=== PATIENT | female | born 1960 | race Caucasian/White ===

== ENCOUNTER 2016-08-24 04:13 | Emergency (ER) | payer BC ==
--- NOTE | 2016-08-24 07:56 | ED NURSING NOTES ---
Clinical Report - Nurses Formerly [facility] [address] [place] [address] 08/24/2016 4:12 Patient: NEY CUEVAS TRIAGE Triage time 04:19. Chief Complaint: ABDOMINAL PAIN, NAUSEA, VOMITING and DIARRHEA. --04:27 Aguila Rodriguez R.N. 04:19 08/24/16. BP: 145/97. HR: 112. RR: 20. O2 saturation: 96%. Temp: 97.6 F. --04: Aguila Rodriguez R.N. Acuity: LEVEL 3. --04: Aguila Rodriguez R.N. Weight: 108.8 kg stated. Height/Length: 66 inches Per Patient. BMI: 38.7. --04: Aguila Rodriguez R.N. Medications Cyclobenzaprine HCl Oral (Tablet 10 mg) 1 tablet, 3x a day as needed. Flonase Nasal 2 sprays, 2x a day as needed. Naproxen Oral 220mg, daily as needed. --04: Aguila Rodriguez R.N. Medication/allergy information source: the patient. --04: Aguila Rodriguez R.N. Allergies Hydrocodone. Side-Effect Oxycodone. Side-Effect (gets loopy does not like) --04: Aguila Rodriguez R.N. History Arrived by private vehicle. Historian: patient. Accompanied by family. ( Nausea, vomiting and diarrhea since 1930 hrs tonight with generalized abdominal pain. No fever.). This started last night. She has had nausea. It has been similar to previous symptoms, vomiting. The vomiting has been bilious, loose stools and abdominal pain. The pain is described as generalized and radiating to the back and associated with nausea, vomiting and diarrhea. Treatment [employer]ENTICE: (Zofran). SURGERY HX: Had hysterectomy. --04:27 Aguila Rodriguez R.N. PROBLEMS: Gastroenteritis. Cancer. Osteoarthritis of multiple joints. Depression. Back Pain. --04:24 Aguila Rodriguez R.N. Interventions ID band on patient. To room. --04:28 Aguila Rodriguez R.N. PHYSICAL ASSESSMENT To room via wheelchair. GENERAL / NEURO / PSYCH: Alert. Appears in no acute distress. Appears in pain and anxious. RESPIRATORY: Respirations not labored. Breath sounds within normal limits. GI / : The patient has had nausea and diarrhea. Obesity. Abdomen soft. Abdominal tenderness diffusely. Bowel sounds within normal limits. SKIN: Skin is warm and dry. --04:30 Aguila Rodriguez R.N. NURSING PROGRESS NOTES Head of bed elevated. Reassurance given. Patient ready for evaluation- ED physician notified. --04:32 Aguila Rodriguez R.N. 04:30 08/24/2016 Site #1 started via IV in the left antecubital space with an 20g angiocath; one attempt. Saline lock flushed with 10 mL saline. --04:35 Aguila Rodriguez R.N. 04:31 08/24/2016 Started IV Fluids IV NS (Saline); bolus of 1000 mL over 1 hour(s) via site #1 via IV pump. Allergies verified and confirmed 5 rights. IV patency established. IV site checked: no pain, redness, or swelling. IV flushed thoroughly pre- and post-medication administration. --04:36 Aguila Rodriguez R.N. 04:40 08/24/2016 Zofran (Ondansetron HCl) IVP 4 mg given over 2 minute(s) via site #1. Allergies verified and confirmed 5 rights. IV patency established. IV site checked: no pain, redness, or swelling. IV flushed thoroughly pre- and post-medication administration. IVP given by RN. --04:40 Aguila Rodriguez R.N. 04:46 08/24/2016 Ativan (LORazepam) IVP 0.5 mg given over 3 minute(s) via site #1. Allergies verified, confirmed 5 rights and sedative warning given to the patient and patient's family. IV patency established. IV site checked: no pain, redness, or swelling. IV flushed thoroughly pre- and post-medication administration. IVP given by RN. --04:46 Aguila Rodriguez R.N. 05:17 08/24/2016 IV Fluids IV NS Discontinued: bag #1 infused. Total amount infused: 1000 mL. IV patency established. IV site checked: no pain, redness, or swelling. IV flushed thoroughly. --05:17 Aguila Rodriguez R.N. 05:24 08/24/2016 Started bag #1 1000 mL IV Fluids IV NS (Saline); at 250 mL/hr over 4 hour(s) via site #1 via IV pump. Allergies verified and confirmed 5 rights. IV patency established. IV site checked: no pain, redness, or swelling. IV flushed thoroughly pre- and post-medication administration. --05:24 Aguila Rodriguez R.N. 05:25 08/24/16. BP: 152/81. HR: 102. RR: 16. O2 saturation: 99%. --05:27 Aguila Rodriguez R.N. Reassessment after fluids administered (bolus). She is calm and resting quietly. Overall patient status is the same- she states feels the same. GI / : Abdomen soft and nontender. Bowel sounds within normal limits. SKIN: Skin is warm and dry. Skin color within normal limits. --05:27 Aguila Rodriguez R.N. Patient ID band checked for patient name and birthdate: patient confirmed. Instructions provided to collect clean catch urine and patient verbalized understanding urine collected with return of yellow-colored clear urine; sample sent to lab for urinalysis. Specimen labeled in the presence of the patient. --06:08 Aguila Rodriguez R.N. 06:49 08/24/16. BP: 138/72. HR: 89. RR: 16. O2 saturation: 97%. --06:50 Aguila Rodriguez R.N. Reassessment after fluids administered. GI / : The patient reports nausea that is mild in severity. Abdomen soft and nontender. SKIN: Skin is warm and dry. Skin color within normal limits. --06:50 Aguila Rodriguez R.N. 08:07 08/24/2016 Ativan (LORazepam) IVP 0.5 mg given over 2 minute(s) via site #1. Allergies verified, confirmed 5 rights and sedative warning given to the patient and patient's family. IV patency established. IV site checked: no pain, redness, or swelling. IV flushed thoroughly pre- and post-medication administration. IVP given by RN. --08:17 Alie Dockery R.N. 08:07 08/24/2016 PHENERGAN (Promethazine HCl) IVP 12.5 mg given over 2 minute(s) via site #1. Allergies verified and confirmed 5 rights. IV patency established. IV site checked: no pain, redness, or swelling. IV flushed thoroughly pre- and post-medication administration. IVP given by RN. --08:18 Alie Dockery R.N. 08:15 08/24/2016 IV Fluids IV NS Discontinued: bag #2 STOPPED upon discharge. Total amount infused: 700 mL. IV patency established. IV site checked: no pain, redness, or swelling. IV flushed thoroughly. --08:34 Alie Dockery R.N. DISPOSITION / DISCHARGE 08:15 08/24/2016 Site #1 removed upon discharge. Catheter intact. Bandage applied. --08:33 Alie Dockery R.N. 08:35 08/24/16. Departure time: 18. Condition at departure: improved and stable. No learning barriers present. Discharge instructions provided and reviewed with the patient and family. Reviewed medication(s) side effects, precautions, dosing and course information. Prescription(s) given to the patient. Patient verbalized understanding. Written instructions provided in Japanese. The patient was discharged by the physician. She was discharged home and accompanied by spouse and family. She left the Emergency Department ambulatory and via private vehicle. Spouse driving. --08:37 Alie Dockery R.N. 08:35 08/24/16. BP: 149/81. HR: 89. RR: 15. O2 saturation: 95% on room air. Temp: 97.8 F (oral). --08:37 Alie Dockery R.N. Locked/Released at 08/24/2016 8:37 by Alie Dockery R.N.
--- NOTE | 2016-08-24 07:56 | ED CLINICAL REPORT ---
Clinical Report - Physicians/Mid Levels [facility] [address] [place] [address] 08/24/2016 4:12 Patient: NEY CUEVAS Time Seen: 04:23 Aug 24 2016. Arrived- By private vehicle. Historian- patient. CPT: ER phys charges level 4 (#[id number]). HISTORY OF PRESENT ILLNESS Chief Complaint: VOMITING and DIARRHEA. This started last night Nausea, vomiting and diarrhea since 1930 hrs tonight with generalized abdominal pain. No fever.). This started last night. She has had nausea. It has been similar to previous symptoms, vomiting. The vomiting has been bilious, loose stools and abdominal pain. The pain is described as generalized and radiating to the back and associated with nausea, vomiting and diarrhea. and is still present (persistent). The patient has had nausea and abdominal pain. The pain is described as located in the central area of the abdomen. She has had moderate vomiting. The vomiting has occurred numerous times. No blood-tinged emesis or frankly bloody emesis. She has had moderate diarrhea (3 times). No black stools, bloody stools, known contact with a sick individual or change in routine. Has not recently been camping or on antibiotics. Possible bad food exposure. The illness is described as moderate. (Has not been able to keep the bentyl down or her pain meds when this happens. Has SL zofran that she says she gets about 3 hours of relief with.). Similar symptoms previously: Twice, as bad. Seen in ED. Evaluation/treatment: abdominal CT scan, labs, stool culture and antispasmodic prescribed. Diagnosis: (unknown etiology). ( Has been referred to GI and has an appointment on September 08. Symptoms usually resolve in 24 to 48 hours.). Recent medical care: Not recently seen/assessed. REVIEW OF SYSTEMS No fever, difficulty with urination, headache, dizziness or sore throat. No cough, chest pain, difficulty breathing or skin rash. All systems otherwise negative, except as recorded above. PAST HISTORY Osteoarthritis of multiple joints. Depression. Cancer. Back Pain. ADDITIONAL SURGERIES: Bladder prolapse. Cholecystectomy. Hysterectomy. Medications: Cyclobenzaprine HCl Oral (Tablet 10 mg) 1 tablet, 3x a day as needed. Flonase Nasal 2 sprays, 2x a day as needed. Naproxen Oral 220mg, daily as needed. Allergies: Hydrocodone. Side-Effect Oxycodone. Side-Effect (gets loopy does not like). SOCIAL HISTORY Never smoker. No alcohol use or drug use. ADDITIONAL NOTES The nursing notes have been reviewed. PHYSICAL EXAM Vital Signs: 08/24/2016 04:19 BP: 145/97. HR: 112. RR: 20. O2 saturation: 96%. Temp: 97.6 F. Appearance: Alert. Anxious. Patient in moderate distress. Eyes: Eyes normal inspection. ENT: Pharynx normal. Neck: Normal inspection. CVS: Tachycardia. Heart sounds normal. Pulses normal. Respiratory: No respiratory distress. Breath sounds normal. Abdomen: Soft. Mild tenderness in the right upper quadrant, periumbilical area and suprapubic area. Abnormal bowel sounds: diminished. Back: Normal inspection. No CVA tenderness. Skin: Skin warm. Normal skin color. No rash. Extremities: Extremities exhibit normal ROM. No lower extremity edema. Neuro: Oriented X 3. No motor deficit. No sensory deficit. LABS, X-RAYS, AND EKG Laboratory Tests: UA-Culture if indicated: (NICOLE: 08/24/2016 05:38) ( MsgRcvd 08/24/2016 06:06) Final results Test Result Flag Units (Reference) URINE COLOR YELLOW URINE APPEARANCE CLEAR URINE GLUCOSE NEGATIVE (NEGATIVE) URINE BILIRUBIN NEGATIVE (NEGATIVE) URINE KETONE 2+ (NEGATIVE) URINE SPECIFIC GRAVITY 1.010 (1.010-1.030) URINE PH 6.5 (5.0-8.0) URINE PROTEIN NEGATIVE (NEGATIVE) URINE UROBILINOGEN 0.2 EU/dL (0.2-1.0) URINE NITRITE NEGATIVE (NEGATIVE) URINE BLOOD NEGATIVE (NEGATIVE) URINE LEUK ESTERASE NEGATIVE (NEGATIVE) URINE RBC NONE SEEN rbc/hpf (0-1) URINE WBC 0-1 wbc/hpf (0-1) URINE EPITHELIAL CELLS 1-3 EPI/hpf (0-5) URINE BACTERIA NONE SEEN (NONE SEEN) URINE COMMENT CULT NOT INDICATED URINE CULTURES ARE SET-UP BASED ON THE FOLLOWING CRITERIA:POSITIVE NITRITEPOSITIVE LEUKOCYTE ESTERASEGREATER THAN 10 WHITE BLOOD CELLSMODERATE (2+) OR GREATER BACTERIA CBC w Diff: (NICOLE: 08/24/2016 04:25) ( MsgRcvd 08/24/2016 04:43) Final results Test Result Flag Units (Reference) WHITE BLOOD COUNT 16.0 H K/uL (4.5-11.5) RED BLOOD COUNT 5.35 H M/uL (4.00-5.20) HEMOGLOBIN 14.8 gm/dL (12.0-16.0) HEMATOCRIT 44.7 % (36.0-46.0) MEAN CELL VOLUME 84 fL (80-100) MEAN CORPUSCULAR HGB 28 pg (26-34) MEAN CORPUSCULAR HGB CONC 33 g/dL (31-37) RED CELL DISTRIBUTION WIDTH 15.4 H % (11.6-14.8) PLATELET COUNT 328 K/uL (150-400) NEUTROPHIL % 75.2 H % (50-75) LYMPH % 20.5 L % (25-40) MONO % 3.8 % (3-14) EOSINOPHIL % 0.2 % (0-4) BASOPHIL % 0.3 % (0-2) [id number]: (NICOLE: 08/24/2016 04:25) ( MsgRcvd 08/24/2016 05:05) Final results Test Result Flag Units (Reference) PROCALCITONIN <0.5 ng/mL (0-0.5) PCT Concentration: Interpretation : Risk/option for action PCT <=0.5 ng/mL : Systemic : Low risk forinfection(sepsis): progression to severeis not likely. : systemic infection.Local bacterial : CAUTION-PCT levelsinfection is : below 0.5 ng/mL do notpossible. : exclude an infection,because localizedinfections (withoutsystemic signs) may beassociated with suchlow levels. If PCT ismeasured very earlyafter a bacterialchallenge (usually <6hours), these valuesmay still be low. Inthis case PCT shouldbe re-assessed 6-24hours later. PCT >0.5 and : Systemic infection: Moderate risk for<= 2 ng/mL : (sepsis) is : progression to severepossible, but : systemic infection.other conditions : The patient should beare known to : closely monitoredelevate PCT. : both clinically andby re-assessing PCTwithin 6-24 hours. PCT > 2 ng/mL : Systemic infection: High risk for(sepsis) is likely: progression to severeunless other : systemic infection.causes are known. : PCT >= 10 ng/mL : Important systemic: High likelihood ofinflammatory : severe sepsis orresponse, almost : septic shock.exclusively due to:severe bacterial :sepsis or septic :shock. : CMP: (NICOLE: 08/24/2016 04:25) ( MsgRcvd 08/24/2016 04:57) Final results Test Result Flag Units (Reference) GLUCOSE 154 H mg/dL (70-110) BUN 17 mg/dL (7-18) CREATININE 1.3 mg/dL (0.6-1.3) Estimated GFR 45.37 mL/min Estimated GFR- 54.99 mL/min Note: Persistent reduction over 3 months in eGFR<60 mL/min/1.73 m2 defines CKD. Patients with eGFR values>=60 mL/min/1.73 m2 may also have CKD if evidence ofpersistent proteinuria. Additional information may be foundat www.kidney.org. SODIUM 139 mmol/L (136-145) POTASSIUM 3.8 mmol/L (3.5-5.1) CHLORIDE 101 mmol/L (98-107) CARBON DIOXIDE 18 L mmol/L (21-32) CALCIUM 9.6 mg/dL (8.5-10.1) TOTAL PROTEIN 8.2 g/dL (6.4-8.2) ALBUMIN 4.0 g/dL (3.3-5.0) BILIRUBIN, TOTAL 0.4 mg/dL (0.0-1.0) ALKALINE PHOSPHATASE 96 U/L (46-116) AST (SGOT) 20 U/L (15-37) ALT (SGPT) 24 U/L (12-78) LIPASE 110 U/L (73-393) AMYLASE 223 H U/L (25-115) THYROID STIMULATING HORMONE 2.466 uIU/mL (0.30-3.74) C-REACTIVE PROTEIN 1.7 H mg/dL (0.0-0.9) . PROGRESS AND PROCEDURES Course of Care: IV NS Zofran 4 mg IV Atrivan 0.5 mg IV Pt notes that the ativan made a big difference for her today. Has not tried that medication before. Pt still has some pain and nausea but is a lot better. Ativan 0.5 mg IV Phenergan 12.5 mg IV Patient is stable. Symptoms much better. Patient/family counseled. Disposition: Discharged. Condition: stable and improved. CLINICAL IMPRESSION Vomiting and diarrhea of unclear cause. Chronic back pain. INSTRUCTIONS Take clear liquids only (frequent sips) for the next 6 hours until better. Advance diet as tolerated. Avoid alcohol and NSAIDS. Examples of NSAIDS include aspirin, ibuprofen (Advil) and naproxen (Aleve). Avoid spicy foods. Warnings: Further evaluation is necessary. SEDATIVE MEDICATION: You were given sedative medication during your visit. Do not drive or operate dangerous machinery. Your Current Medications: CONTINUE TAKING THE FOLLOWING MEDICATIONS: Cyclobenzaprine HCl Oral : Tablet 10 mg, 1 tablet 3x a day, prn. Flonase Nasal : 2 sprays 2x a day, prn. Naproxen Oral : 220mg daily, prn. Prescription Medications: Ativan 1 mg: take 1-2 orally every 4 hours as needed. Dispense twenty (20). No refill. Phenergan 25 mg suppositories: insert 1 rectally every 6 hours as needed for nausea or vomiting. Dispense fifteen (15). No refill Follow-up: Follow up with your doctor in two days. Call for the next available appointment. Understanding of the discharge instructions verbalized by patient and family. Discharge instructions reviewed with and understanding was verbalized by spouse. (Electronically signed by Shay Lugo MD 09/05/2016 23:07)
--- NOTE | 2016-08-24 07:56 | ED ORDER SUMMARY ---
..... Patient: NEY CUEVAS OrderSheet [facility] VisitID: [id number] [place] [address] 56y, F Registration Date/Time: 08/24/2016 ORDER SHEET Weight: 108.8 kg (stated) Allergies: Hydrocodone, Oxycodone GENERAL ORDERS: CBC w Diff Urgent (04:32 08/24/2016 Anmol DÍAZ) (Ack 4:34 CHernandez R.N.) (4:38 CHernandez R.N.) CMP Urgent (04:08/24/2016 Anmol DÍAZ) (Ack 4:34 Isabellnandez R.N.) (4:38 CHernandez R.N.) UA-Culture if indicated Urgent (04:08/24/2016 Anmol DÍAZ) (Ack 4:42 RKcynthia) (5:58 CHernandez R.N.) Amylase Urgent (04:08/24/2016 Anmol DÍAZ) (Ack 4:34 CHernandez R.N.) (4:38 CHernandez R.N.) Lipase Urgent (04:08/24/2016 Anmol DÍAZ) (Ack 4:34 Isabellnandez R.N.) (4:38 CHernandez R.N.) TSH Urgent (04:08/24/2016 Anmol DÍAZ) (Ack 4:34 Isabellnandez R.N.) (4:38 CHernandez R.N.) CRP Urgent (04:08/24/2016 Anmol DÍAZ) (Ack 4:34 Isabellnandez R.N.) (4:38 CHernandez R.N.) PCT (Procalcitonin) Urgent (04:08/24/2016 Anmol DÍAZ) (Ack 4:34 Isabellnandez R.N.) (4:38 Isabellnandez R.N.) MEDICATION ORDERS: Phenergan IV 12.5 mg (NOW) (07:45 08/24/2016 Anmol DÍAZ) (8:18 KWilliams R.N.) IV FLUIDS: IV NS : initial bolus 1000 mL (1000 mL/hr), then 250 mL/hr for 4h (NOW); Routine (04:32 08/24/2016 Anmol DÍAZ) (4:36 Guerrero Gan) Zofran IV 4 mg (NOW) (04:33 08/24/2016 Anmol DÍAZ) (4:40 Guerrero MartinNZaheer) Ativan IV 0.5 mg (NOW) (04:33 08/24/2016 Anmol DÍAZ) (4:46 Guerrero Anton.N.) Ativan IV 0.5 mg (NOW) (07:44 08/24/2016 Anmol DÍAZ) (8:17 Stevan Anton.NZaheer) ORDER SHEET NOTES: [Electronically signed by Alie Dockery R.N. (08:37 08/24/2016)] [Electronically signed by Shay Lugo MD (23:07 09/05/2016)] [Electronically locked/signed by Alie Dockery R.N. (08:37 08/24/2016)]
--- NOTE | 2016-08-24 07:56 | ED ORDER SUMMARY ---
..... Patient: NEY CUEVAS OrderSheet [facility] VisitID: [id number] [place] [address] 56y, F Registration Date/Time: 08/24/2016 ORDER SHEET Weight: 108.8 kg (stated) Allergies: Hydrocodone, Oxycodone GENERAL ORDERS: CBC w Diff Urgent (04:32 08/24/2016 Anmol DÍAZ) (Ack 4:34 CHernandez R.N.) (4:38 CHernandez R.N.) CMP Urgent (04:08/24/2016 Anmol DÍAZ) (Ack 4:34 Isabellnandez R.N.) (4:38 CHernandez R.N.) UA-Culture if indicated Urgent (04:08/24/2016 Anmol DÍAZ) (Ack 4:42 RKcynthia) (5:58 CHernandez R.N.) Amylase Urgent (04:08/24/2016 Anmol DÍAZ) (Ack 4:34 CHernandez R.N.) (4:38 CHernandez R.N.) Lipase Urgent (04:08/24/2016 Anmol DÍAZ) (Ack 4:34 Isabellnandez R.N.) (4:38 CHernandez R.N.) TSH Urgent (04:08/24/2016 Anmol DÍAZ) (Ack 4:34 Isabellnandez R.N.) (4:38 CHernandez R.N.) CRP Urgent (04:08/24/2016 Anmol DÍAZ) (Ack 4:34 Isabellnandez R.N.) (4:38 CHernandez R.N.) PCT (Procalcitonin) Urgent (04:08/24/2016 Anmol DÍAZ) (Ack 4:34 Isabellnandez R.N.) (4:38 Isabellnandez R.N.) MEDICATION ORDERS: Phenergan IV 12.5 mg (NOW) (07:45 08/24/2016 Anmol DÍAZ) (8:18 KWilliams R.N.) IV FLUIDS: IV NS : initial bolus 1000 mL (1000 mL/hr), then 250 mL/hr for 4h (NOW); Routine (04:32 08/24/2016 Anmol DÍAZ) (4:36 Guerrero Gan) Zofran IV 4 mg (NOW) (04:33 08/24/2016 Anmol DÍAZ) (4:40 Guerrero MartinNZaheer) Ativan IV 0.5 mg (NOW) (04:33 08/24/2016 Anmol DÍAZ) (4:46 Guerrero Anton.N.) Ativan IV 0.5 mg (NOW) (07:44 08/24/2016 Anmol DÍAZ) (8:17 Stevan Anton.NZaheer) ORDER SHEET NOTES: [Electronically signed by Alie Dockery R.N. (08:37 08/24/2016)] [Electronically signed by Shay Lugo MD (23:07 09/05/2016)] [Electronically locked/signed by Alie Dockery R.N. (08:37 08/24/2016)]
--- NOTE | 2016-09-05 23:08 | ED MAR SUMMARY ---
..... Medication Administration Record [facility] [address] [place] [address] Patient: NEY CUEVAS Visit ID: [id number] 56y, F Weight: 108.8 kg Height/Length: 66 in BMI: 38.7 ALLERGIES: Hydrocodone, Oxycodone Start 04:31 08/24/2016 Aguila Rodriguez R.N., Stop 05:17 08/24/2016 Aguila Rodriguez R.N. Medication Administered: IV NS (SALINE), Dose: IV Fluids, Bolus: 1000 mL over 1 hour(s), Site: #1 left AC. Medication Ordered: IV NS : initial bolus 1000 mL (1000 mL/hr), then 250 mL/hr for 4h (NOW); Routine. Given 04:40 08/24/2016 Aguila Rodriguez R.N. Medication Administered: ZOFRAN [IVP] (ONDANSETRON HCL), Dose: 4 mg IVP over 2 minute(s), Site: #1 left AC. Medication Ordered: Zofran IV 4 mg (NOW). Given 04:46 08/24/2016 Aguila Rodriguez R.N. Medication Administered: ATIVAN [IVP] (LORAZEPAM), Dose: 0.5 mg IVP over 3 minute(s), Site: #1 left AC. Medication Ordered: Ativan IV 0.5 mg (NOW). Start 05:24 08/24/2016 Aguila Rodriguez R.N., Stop 08:15 08/24/2016 Alie Dockery R.N. Medication Administered: IV NS (SALINE), Dose: IV Fluids over 4 hour(s), Rate: 250 mL/hr, Dispensed: 1000 mL bag, Site: #1 left AC. Medication Ordered: IV NS : initial bolus 1000 mL (1000 mL/hr), then 250 mL/hr for 4h (NOW); Routine. Given 08:07 08/24/2016 Alie Dockery R.N. Medication Administered: ATIVAN [IVP] (LORAZEPAM), Dose: 0.5 mg IVP over 2 minute(s), Site: #1 left AC. Medication Ordered: Ativan IV 0.5 mg (NOW). Given 08:07 08/24/2016 Alie Dockery R.N. Medication Administered: PHENERGAN [IVP] (PROMETHAZINE HCL), Dose: 12.5 mg IVP over 2 minute(s), Site: #1 left AC. Medication Ordered: Phenergan IV 12.5 mg (NOW).
--- NOTE | 2016-09-05 23:08 | ED DISCHARGE INSTRUCTIONS ---
Patient: NEY CUEVAS General Instructions [facility] VisitID: [id number] [place] [address] 56y, F Registration Date/Time: 08/24/2016 Vomiting and diarrhea of unclear cause. Chronic back pain. INSTRUCTIONS Take clear liquids only (frequent sips) for the next 6 hours until better. Advance diet as tolerated. Avoid alcohol and NSAIDS. Examples of NSAIDS include aspirin, ibuprofen (Advil) and naproxen (Aleve). Avoid spicy foods. Warnings: Further evaluation is necessary. SEDATIVE MEDICATION: You were given sedative medication during your visit. Do not drive or operate dangerous machinery. Your Current Medications: CONTINUE TAKING THE FOLLOWING MEDICATIONS: Cyclobenzaprine HCl Oral : Tablet 10 mg, 1 tablet 3x a day, prn. Flonase Nasal : 2 sprays 2x a day, prn. Naproxen Oral : 220mg daily, prn. Prescription Medications: Ativan 1 mg: take 1-2 orally every 4 hours as needed. Dispense twenty (20). No refill. Phenergan 25 mg suppositories: insert 1 rectally every 6 hours as needed for nausea or vomiting. Dispense fifteen (15). No refill Follow-up: Follow up with your doctor in two days. Call for the next available appointment. Understanding of the discharge instructions verbalized by patient and family. Discharge instructions reviewed with and understanding was verbalized by spouse. ADDITIONAL INFORMATION Clear Liquid Diet Clear liquids are any liquid that you can see through as well as those that are very easy to digest. This is used while the body is recovering from irritation or infection of the stomach or intestinal tract. It may also be used before special procedures or surgery. This diet is to be used no more than three days. You may include the following items. Adults Adults should drink a total of 23 quarts of liquid per day. It may be easier to drink small frequent servings rather than a few large ones. Liquids can include: Fruit juices.Strained orange juice or lemonade (no pulp), apple, grape and cranberry juice, clear fruit drinks, sports drinks Beverages.Sport drinks, sodas, mineral water (plain or flavored), tea, black coffee, liquid gelatin (add twice the recommended amount of water) Soups.Clear broth, consomm, bouillon Desserts.Plain gelatin, popsicles, fruit juice bars Children Over 2 years old The following liquids are acceptable for children over age 2: Fruit juices.Strained orange juice or lemonade (no pulp), apple, grape and cranberry juice, clear fruit drinks Beverages. Sports drinks, sodas, mineral water (plain or flavored), tea, liquid gelatin (add twice the recommended amount of water) Soups. Clear broth, consomm, bouillon Desserts. Plain gelatin, popsicles, fruit juice bars Children under 2 years old Oral rehydration fluids such are available at drug stores and most grocery stores without a prescription. [place] Diet A bland diet is used for patients with an upset stomach. It consists of foods that are mild and easy to digest. It is better to eat small frequent meals rather than three large meals a day. BEVERAGES OK: Fruit juices, non-caffeinated teas and coffee, non-carbonated dhillon AVOID: Carbonated beverage, caffeinated tea and coffee, all alcoholic beverages BREAD OK: Refined white, wheat or rye bread, nico or soda crackers, [place] toast, plain rolls, bagels AVOID: Whole-grain bread CEREAL OK: Refined cereals: cooked or ready to eat AVOID: Whole grain cereals and granola, or those containing bran, seeds or nuts DESSERTS OK: Peanut butter and all others except those to "avoid" AVOID: Chocolate, cocoa, coconut, popcorn, nuts, seeds, jam, marmalade FRUITS OK: Canned, cooked, frozen or fresh fruits without seeds or tough skin AVOID: Olives, skin and seeds of fruit MEATS OK: All fresh or preserved meat, fish and fowl AVOID: Any that are prepared with those spices to "avoid" CHEESE & EGGS OK: Eggs, cottage cheese, cream cheese, other cheeses AVOID: All cheeses made with those spices to "avoid" POTATOES & PASTA OK: Potato, rice, macaroni, noodles, spaghetti AVOID: None SOUPS OK: All soups without heavy seasoning AVOID: Soups made with those spices to "avoid" VEGETABLES OK: Canned, cooked, fresh or frozen mildly flavored vegetables without seeds, skins or coarse fiber AVOID: Vegetables prepared with those spices to "avoid"; skin and seeds of vegetables and those with coarse fiber SPICES OK: Salt, lemon and [place] juice, vinegar, all extracts, eli, cinnamon, thyme, mace, allspice, paprika AVOID: [place] powder, cloves, pepper, seed spices, garlic, gravy pickles, highly seasoned salad dressings Lorazepam Oral tablet What is this medicine? LORAZEPAM (rupali A ze fay) is a benzodiazepine. It is used to treat anxiety. How should I use this medicine? Take this medicine by mouth with a glass of water. Follow the directions on the prescription label. If it upsets your stomach, take it with food or milk. Take your medicine at regular intervals. Do not take it more often than directed. Do not stop taking except on the advice of your doctor or health foster care social worker. Talk to your capacitor tester regarding the use of this medicine in children. Special care may be needed. What side effects may I notice from receiving this medicine? Side effects that you should report to your doctor or health foster care social worker as soon as possible: changes in vision confusion depression mood changes, excitability or aggressive behavior movement difficulty, staggering or jerky movements muscle cramps restlessness weakness or tiredness Side effects that usually do not require medical attention (report to your doctor or health foster care social worker if they continue or are bothersome): constipation or diarrhea difficulty sleeping, nightmares dizziness, drowsiness headache nausea, vomiting What may interact with this medicine? barbiturate medicines for inducing sleep or treating seizures, like phenobarbital clozapine medicines for depression, mental problems or psychiatric disturbances medicines for sleep phenytoin probenecid theophylline valproic acid What if I miss a dose? If you miss a dose, take it as soon as you can. If it is almost time for your next dose, take only that dose. Do not take double or extra doses. Where should I keep my medicine? Keep out of the reach of children. This medicine can be abused. Keep your medicine in a safe place to protect it from theft. Do not share this medicine with anyone. Selling or giving away this medicine is dangerous and against the law. Store at room temperature between 20 and 25 degrees C (68 and 77 degrees F). Protect from light. Keep container tightly closed. Throw away any unused medicine after the expiration date. What should I tell my health care provider before I take this medicine? They need to know if you have any of these conditions: alcohol or drug abuse problem bipolar disorder, depression, psychosis or other mental health condition glaucoma kidney or liver disease lung disease or breathing difficulties myasthenia gravis Parkinson's disease seizures or a history of seizures suicidal thoughts an unusual or allergic reaction to lorazepam, other benzodiazepines, foods, dyes, or preservatives or trying to get breast-feeding What should I watch for while using this medicine? Visit your doctor or health foster care social worker for regular checks on your progress. Your body may become dependent on this medicine, ask your doctor or health foster care social worker if you still need to take it. However, if you have been taking this medicine regularly for some time, do not suddenly stop taking it. You must gradually reduce the dose or you may get severe side effects. Ask your doctor or health foster care social worker for advice before increasing or decreasing the dose. Even after you stop taking this medicine it can still affect your body for several days. You may get drowsy or dizzy. Do not drive, use machinery, or do anything that needs mental alertness until you know how this medicine affects you. To reduce the risk of dizzy and fainting spells, do not stand or sit up quickly, especially if you are an older patient. Alcohol may increase dizziness and drowsiness. Avoid alcoholic drinks. Do not treat yourself for coughs, colds or allergies without asking your doctor or health foster care social worker for advice. Some ingredients can increase possible side effects. Promethazine Hydrochloride Rectal suppository What is this medicine? PROMETHAZINE (proe METH a zeen) is an antihistamine. It is used to treat allergic reactions and to treat or prevent nausea and vomiting from illness or motion sickness. It is also used to make you sleep before surgery, and to help treat pain or nausea after surgery. How should I use this medicine? This medicine is for rectal use only. Do not take by mouth. Wash your hands before and after use. Take off the foil wrapping. Wet the tip of the suppository with cold tap water to make it easier to use. Lie on your side with your lower leg straightened out and your upper leg bent forward toward your stomach. Lift upper buttock to expose the rectal area. Apply gentle pressure to insert the suppository completely into the rectum, pointed end first. Hold buttocks together for a few seconds. Remain lying down for about 15 minutes to avoid having the suppository come out. Do not use more often than directed. Talk to your capacitor tester regarding the use of this medicine in children. Special care may be needed. This medicine should not be given to infants and children younger than 2 years old. What side effects may I notice from receiving this medicine? Side effects that you should report to your doctor or health foster care social worker as soon as possible: blurred vision irregular heartbeat, palpitations or chest pain muscle or facial twitches pain or difficulty passing urine seizures skin rash slowed or shallow breathing unusual bleeding or bruising yellowing of the eyes or skin Side effects that usually do not require medical attention (report to your doctor or health foster care social worker if they continue or are bothersome): headache nightmares, agitation, nervousness, excitability, not able to sleep (these are more likely in children) stuffy nose What may interact with this medicine? Do not take this medicine with any of the following medications: medicines called MAO Inhibitors like Nardil, Parnate, Marplan, Eldepryl other phenothiazines like trimethobenzamide This medicine may also interact with the following medications: barbiturates such as phenobarbital bromocriptine certain antidepressants certain antihistamines used in allergy or cold medicines epinephrine levodopa medicines for sleep medicines for mental problems and psychotic disturbances medicines for movement abnormalities as in Parkinson's disease, or for gastrointestinal problems muscle relaxants prescription pain medicines What if I miss a dose? If you miss a dose, use it as soon as you can. If it is almost time for your next dose, use only that dose. Do not use double doses. Where should I keep my medicine? Keep out of the reach of children. Store in a refrigerator between 2 and 8 degrees C (36 and 46 degrees F). Throw away any unused medicine after the expiration date. What should I tell my health care provider before I take this medicine? They need to know if you have any of these conditions: glaucoma high blood pressure or heart disease kidney disease liver disease lung or breathing disease, like asthma prostate trouble pain or difficulty passing urine seizures an unusual or allergic reaction to promethazine or phenothiazines, other medicines, foods, dyes, or preservatives or trying to get breast-feeding What should I watch for while using this medicine? Tell your doctor or health foster care social worker if your symptoms do not start to get better in 1 to 2 days. You may get drowsy or dizzy. Do not drive, use machinery, or do anything that needs mental alertness until you know how this medicine affects you. To reduce the risk of dizzy or fainting spells, do not stand or sit up quickly, especially if you are an older patient. Alcohol may increase dizziness and drowsiness. Avoid alcoholic drinks. Your mouth may get dry. Chewing sugarless gum or sucking hard candy, and drinking plenty of water may help. Contact your doctor if the problem does not go away or is severe. This medicine may cause dry eyes and blurred vision. If you wear contact lenses you may feel some discomfort. Lubricating drops may help. See your eye doctor if the problem does not go away or is severe. This medicine can make you more sensitive to the sun. Keep out of the sun. If you cannot avoid being in the sun, wear protective clothing and use sunscreen. Do not use sun lamps or tanning beds/booths. If you are diabetic, check your blood-sugar levels regularly. You have been given the following additional information: Diet, Clear Liquid Diet, [place] (Adult) Lorazepam Oral tablet Promethazine Hydrochloride Rectal suppository (Electronically signed by Shay Lugo MD 09/05/2016 23:07)
--- NOTE | 2016-09-05 23:08 | ED MED RECONCILIATION SUMMARY ---
Patient: NEY CUEVAS Medication Reconciliation Report [facility] VisitID: [id number] [place] [address] 56y, F Registration Date/Time: 08/24/2016 Weight: 108.8 kg Height/Length: 66 in. BMI: 38.7 ALLERGIES: Hydrocodone, Oxycodone The patient's Home Medications are listed below: CONTINUE TAKING THE FOLLOWING MEDICATIONS: Cyclobenzaprine HCl Oral (10 mg) 1 tablet, 3x a day Flonase Nasal 2 sprays, 2x a day Naproxen Oral 220mg, daily The source(s) of the original Home Medication information: patient The following Medications were given to the patient in the Emergency Department: IV NS IV Fluids bolus 1000 mL over 1 hour(s), administered: 08/24/2016 4:31:00 AM Zofran [IVP] IVP 4 mg, administered: 08/24/2016 4:40:00 AM Ativan [IVP] IVP 0.5 mg, administered: 08/24/2016 4:46:00 AM IV NS IV Fluids bolus 0, then 250 mL/hr, administered: 08/24/2016 5:24:00 AM Ativan [IVP] IVP 0.5 mg, administered: 08/24/2016 8:07:00 AM PHENERGAN [IVP] IVP 12.5 mg, administered: 08/24/2016 8:07:00 AM The following Medications were prescribed to the patient: Ativan 1 mg: take 1-2 orally every 4 hours as needed. Dispense twenty (20). No refill. -- Shay Lugo MD Phenergan 25 mg suppositories: insert 1 rectally every 6 hours as needed for nausea or vomiting. Dispense fifteen (15). No refill -- Shay Lugo MD
--- NOTE | 2016-09-05 23:08 | ED DISCHARGE INSTRUCTIONS ---
Patient: NEY CUEVAS General Instructions [facility] VisitID: [id number] [place] [address] 56y, F Registration Date/Time: 08/24/2016 Vomiting and diarrhea of unclear cause. Chronic back pain. INSTRUCTIONS Take clear liquids only (frequent sips) for the next 6 hours until better. Advance diet as tolerated. Avoid alcohol and NSAIDS. Examples of NSAIDS include aspirin, ibuprofen (Advil) and naproxen (Aleve). Avoid spicy foods. Warnings: Further evaluation is necessary. SEDATIVE MEDICATION: You were given sedative medication during your visit. Do not drive or operate dangerous machinery. Your Current Medications: CONTINUE TAKING THE FOLLOWING MEDICATIONS: Cyclobenzaprine HCl Oral : Tablet 10 mg, 1 tablet 3x a day, prn. Flonase Nasal : 2 sprays 2x a day, prn. Naproxen Oral : 220mg daily, prn. Prescription Medications: Ativan 1 mg: take 1-2 orally every 4 hours as needed. Dispense twenty (20). No refill. Phenergan 25 mg suppositories: insert 1 rectally every 6 hours as needed for nausea or vomiting. Dispense fifteen (15). No refill Follow-up: Follow up with your doctor in two days. Call for the next available appointment. Understanding of the discharge instructions verbalized by patient and family. Discharge instructions reviewed with and understanding was verbalized by spouse. ADDITIONAL INFORMATION Clear Liquid Diet Clear liquids are any liquid that you can see through as well as those that are very easy to digest. This is used while the body is recovering from irritation or infection of the stomach or intestinal tract. It may also be used before special procedures or surgery. This diet is to be used no more than three days. You may include the following items. Adults Adults should drink a total of 23 quarts of liquid per day. It may be easier to drink small frequent servings rather than a few large ones. Liquids can include: Fruit juices.Strained orange juice or lemonade (no pulp), apple, grape and cranberry juice, clear fruit drinks, sports drinks Beverages.Sport drinks, sodas, mineral water (plain or flavored), tea, black coffee, liquid gelatin (add twice the recommended amount of water) Soups.Clear broth, consomm, bouillon Desserts.Plain gelatin, popsicles, fruit juice bars Children Over 2 years old The following liquids are acceptable for children over age 2: Fruit juices.Strained orange juice or lemonade (no pulp), apple, grape and cranberry juice, clear fruit drinks Beverages. Sports drinks, sodas, mineral water (plain or flavored), tea, liquid gelatin (add twice the recommended amount of water) Soups. Clear broth, consomm, bouillon Desserts. Plain gelatin, popsicles, fruit juice bars Children under 2 years old Oral rehydration fluids such are available at drug stores and most grocery stores without a prescription. Bowman Diet A bland diet is used for patients with an upset stomach. It consists of foods that are mild and easy to digest. It is better to eat small frequent meals rather than three large meals a day. BEVERAGES OK: Fruit juices, non-caffeinated teas and coffee, non-carbonated dhillon AVOID: Carbonated beverage, caffeinated tea and coffee, all alcoholic beverages BREAD OK: Refined white, wheat or rye bread, nico or soda crackers, [place] toast, plain rolls, bagels AVOID: Whole-grain bread CEREAL OK: Refined cereals: cooked or ready to eat AVOID: Whole grain cereals and granola, or those containing bran, seeds or nuts DESSERTS OK: Peanut butter and all others except those to "avoid" AVOID: Chocolate, cocoa, coconut, popcorn, nuts, seeds, jam, marmalade FRUITS OK: Canned, cooked, frozen or fresh fruits without seeds or tough skin AVOID: Olives, skin and seeds of fruit MEATS OK: All fresh or preserved meat, fish and fowl AVOID: Any that are prepared with those spices to "avoid" CHEESE & EGGS OK: Eggs, cottage cheese, cream cheese, other cheeses AVOID: All cheeses made with those spices to "avoid" POTATOES & PASTA OK: Potato, rice, macaroni, noodles, spaghetti AVOID: None SOUPS OK: All soups without heavy seasoning AVOID: Soups made with those spices to "avoid" VEGETABLES OK: Canned, cooked, fresh or frozen mildly flavored vegetables without seeds, skins or coarse fiber AVOID: Vegetables prepared with those spices to "avoid"; skin and seeds of vegetables and those with coarse fiber SPICES OK: Salt, lemon and [place] juice, vinegar, all extracts, eli, cinnamon, thyme, mace, allspice, paprika AVOID: [place] powder, cloves, pepper, seed spices, garlic, gravy pickles, highly seasoned salad dressings Lorazepam Oral tablet What is this medicine? LORAZEPAM (rupali A ze fay) is a benzodiazepine. It is used to treat anxiety. How should I use this medicine? Take this medicine by mouth with a glass of water. Follow the directions on the prescription label. If it upsets your stomach, take it with food or milk. Take your medicine at regular intervals. Do not take it more often than directed. Do not stop taking except on the advice of your doctor or health primary care md. Talk to your aerial hurricane hunter regarding the use of this medicine in children. Special care may be needed. What side effects may I notice from receiving this medicine? Side effects that you should report to your doctor or health primary care md as soon as possible: changes in vision confusion depression mood changes, excitability or aggressive behavior movement difficulty, staggering or jerky movements muscle cramps restlessness weakness or tiredness Side effects that usually do not require medical attention (report to your doctor or health primary care md if they continue or are bothersome): constipation or diarrhea difficulty sleeping, nightmares dizziness, drowsiness headache nausea, vomiting What may interact with this medicine? barbiturate medicines for inducing sleep or treating seizures, like phenobarbital clozapine medicines for depression, mental problems or psychiatric disturbances medicines for sleep phenytoin probenecid theophylline valproic acid What if I miss a dose? If you miss a dose, take it as soon as you can. If it is almost time for your next dose, take only that dose. Do not take double or extra doses. Where should I keep my medicine? Keep out of the reach of children. This medicine can be abused. Keep your medicine in a safe place to protect it from theft. Do not share this medicine with anyone. Selling or giving away this medicine is dangerous and against the law. Store at room temperature between 20 and 25 degrees C (68 and 77 degrees F). Protect from light. Keep container tightly closed. Throw away any unused medicine after the expiration date. What should I tell my health care provider before I take this medicine? They need to know if you have any of these conditions: alcohol or drug abuse problem bipolar disorder, depression, psychosis or other mental health condition glaucoma kidney or liver disease lung disease or breathing difficulties myasthenia gravis Parkinson's disease seizures or a history of seizures suicidal thoughts an unusual or allergic reaction to lorazepam, other benzodiazepines, foods, dyes, or preservatives or trying to get breast-feeding What should I watch for while using this medicine? Visit your doctor or health primary care md for regular checks on your progress. Your body may become dependent on this medicine, ask your doctor or health primary care md if you still need to take it. However, if you have been taking this medicine regularly for some time, do not suddenly stop taking it. You must gradually reduce the dose or you may get severe side effects. Ask your doctor or health primary care md for advice before increasing or decreasing the dose. Even after you stop taking this medicine it can still affect your body for several days. You may get drowsy or dizzy. Do not drive, use machinery, or do anything that needs mental alertness until you know how this medicine affects you. To reduce the risk of dizzy and fainting spells, do not stand or sit up quickly, especially if you are an older patient. Alcohol may increase dizziness and drowsiness. Avoid alcoholic drinks. Do not treat yourself for coughs, colds or allergies without asking your doctor or health primary care md for advice. Some ingredients can increase possible side effects. Promethazine Hydrochloride Rectal suppository What is this medicine? PROMETHAZINE (proe METH a zeen) is an antihistamine. It is used to treat allergic reactions and to treat or prevent nausea and vomiting from illness or motion sickness. It is also used to make you sleep before surgery, and to help treat pain or nausea after surgery. How should I use this medicine? This medicine is for rectal use only. Do not take by mouth. Wash your hands before and after use. Take off the foil wrapping. Wet the tip of the suppository with cold tap water to make it easier to use. Lie on your side with your lower leg straightened out and your upper leg bent forward toward your stomach. Lift upper buttock to expose the rectal area. Apply gentle pressure to insert the suppository completely into the rectum, pointed end first. Hold buttocks together for a few seconds. Remain lying down for about 15 minutes to avoid having the suppository come out. Do not use more often than directed. Talk to your aerial hurricane hunter regarding the use of this medicine in children. Special care may be needed. This medicine should not be given to infants and children younger than 2 years old. What side effects may I notice from receiving this medicine? Side effects that you should report to your doctor or health primary care md as soon as possible: blurred vision irregular heartbeat, palpitations or chest pain muscle or facial twitches pain or difficulty passing urine seizures skin rash slowed or shallow breathing unusual bleeding or bruising yellowing of the eyes or skin Side effects that usually do not require medical attention (report to your doctor or health primary care md if they continue or are bothersome): headache nightmares, agitation, nervousness, excitability, not able to sleep (these are more likely in children) stuffy nose What may interact with this medicine? Do not take this medicine with any of the following medications: medicines called MAO Inhibitors like Nardil, Parnate, Marplan, Eldepryl other phenothiazines like trimethobenzamide This medicine may also interact with the following medications: barbiturates such as phenobarbital bromocriptine certain antidepressants certain antihistamines used in allergy or cold medicines epinephrine levodopa medicines for sleep medicines for mental problems and psychotic disturbances medicines for movement abnormalities as in Parkinson's disease, or for gastrointestinal problems muscle relaxants prescription pain medicines What if I miss a dose? If you miss a dose, use it as soon as you can. If it is almost time for your next dose, use only that dose. Do not use double doses. Where should I keep my medicine? Keep out of the reach of children. Store in a refrigerator between 2 and 8 degrees C (36 and 46 degrees F). Throw away any unused medicine after the expiration date. What should I tell my health care provider before I take this medicine? They need to know if you have any of these conditions: glaucoma high blood pressure or heart disease kidney disease liver disease lung or breathing disease, like asthma prostate trouble pain or difficulty passing urine seizures an unusual or allergic reaction to promethazine or phenothiazines, other medicines, foods, dyes, or preservatives or trying to get breast-feeding What should I watch for while using this medicine? Tell your doctor or health primary care md if your symptoms do not start to get better in 1 to 2 days. You may get drowsy or dizzy. Do not drive, use machinery, or do anything that needs mental alertness until you know how this medicine affects you. To reduce the risk of dizzy or fainting spells, do not stand or sit up quickly, especially if you are an older patient. Alcohol may increase dizziness and drowsiness. Avoid alcoholic drinks. Your mouth may get dry. Chewing sugarless gum or sucking hard candy, and drinking plenty of water may help. Contact your doctor if the problem does not go away or is severe. This medicine may cause dry eyes and blurred vision. If you wear contact lenses you may feel some discomfort. Lubricating drops may help. See your eye doctor if the problem does not go away or is severe. This medicine can make you more sensitive to the sun. Keep out of the sun. If you cannot avoid being in the sun, wear protective clothing and use sunscreen. Do not use sun lamps or tanning beds/booths. If you are diabetic, check your blood-sugar levels regularly. You have been given the following additional information: Diet, Clear Liquid Diet, Bowman (Adult) Lorazepam Oral tablet Promethazine Hydrochloride Rectal suppository (Electronically signed by Shay Lugo MD 09/05/2016 23:07)
--- NOTE | 2016-09-05 23:08 | ED MED RECONCILIATION SUMMARY ---
Patient: NEY CUEVAS Medication Reconciliation Report [facility] VisitID: [id number] [place] [address] 56y, F Registration Date/Time: 08/24/2016 Weight: 108.8 kg Height/Length: 66 in. BMI: 38.7 ALLERGIES: Hydrocodone, Oxycodone The patient's Home Medications are listed below: CONTINUE TAKING THE FOLLOWING MEDICATIONS: Cyclobenzaprine HCl Oral (10 mg) 1 tablet, 3x a day Flonase Nasal 2 sprays, 2x a day Naproxen Oral 220mg, daily The source(s) of the original Home Medication information: patient The following Medications were given to the patient in the Emergency Department: IV NS IV Fluids bolus 1000 mL over 1 hour(s), administered: 08/24/2016 4:31:00 AM Zofran [IVP] IVP 4 mg, administered: 08/24/2016 4:40:00 AM Ativan [IVP] IVP 0.5 mg, administered: 08/24/2016 4:46:00 AM IV NS IV Fluids bolus 0, then 250 mL/hr, administered: 08/24/2016 5:24:00 AM Ativan [IVP] IVP 0.5 mg, administered: 08/24/2016 8:07:00 AM PHENERGAN [IVP] IVP 12.5 mg, administered: 08/24/2016 8:07:00 AM The following Medications were prescribed to the patient: Ativan 1 mg: take 1-2 orally every 4 hours as needed. Dispense twenty (20). No refill. -- Shay Lugo MD Phenergan 25 mg suppositories: insert 1 rectally every 6 hours as needed for nausea or vomiting. Dispense fifteen (15). No refill -- Shay Lugo MD
--- NOTE | 2016-09-05 23:08 | ED MAR SUMMARY ---
..... Medication Administration Record [facility] [address] [place] [place] [address] Patient: NEY CUEVAS Visit ID: [id number] 56y, F Weight: 108.8 kg Height/Length: 66 in BMI: 38.7 ALLERGIES: Hydrocodone, Oxycodone Start 04:31 08/24/2016 Aguila Rodriguez R.N., Stop 05:17 08/24/2016 Aguila Rodriguez R.N. Medication Administered: IV NS (SALINE), Dose: IV Fluids, Bolus: 1000 mL over 1 hour(s), Site: #1 left AC. Medication Ordered: IV NS : initial bolus 1000 mL (1000 mL/hr), then 250 mL/hr for 4h (NOW); Routine. Given 04:40 08/24/2016 Aguila Rodriguez R.N. Medication Administered: ZOFRAN [IVP] (ONDANSETRON HCL), Dose: 4 mg IVP over 2 minute(s), Site: #1 left AC. Medication Ordered: Zofran IV 4 mg (NOW). Given 04:46 08/24/2016 Aguila Rodriguez R.N. Medication Administered: ATIVAN [IVP] (LORAZEPAM), Dose: 0.5 mg IVP over 3 minute(s), Site: #1 left AC. Medication Ordered: Ativan IV 0.5 mg (NOW). Start 05:24 08/24/2016 Aguila Rodriguez R.N., Stop 08:15 08/24/2016 Alie Dockery R.N. Medication Administered: IV NS (SALINE), Dose: IV Fluids over 4 hour(s), Rate: 250 mL/hr, Dispensed: 1000 mL bag, Site: #1 left AC. Medication Ordered: IV NS : initial bolus 1000 mL (1000 mL/hr), then 250 mL/hr for 4h (NOW); Routine. Given 08:07 08/24/2016 Alie Dockery R.N. Medication Administered: ATIVAN [IVP] (LORAZEPAM), Dose: 0.5 mg IVP over 2 minute(s), Site: #1 left AC. Medication Ordered: Ativan IV 0.5 mg (NOW). Given 08:07 08/24/2016 Alie Dockery R.N. Medication Administered: PHENERGAN [IVP] (PROMETHAZINE HCL), Dose: 12.5 mg IVP over 2 minute(s), Site: #1 left AC. Medication Ordered: Phenergan IV 12.5 mg (NOW).
== END 2016-08-24 08:18 | disposition home or self-care (01) ==
LOC: ED SRH 04:13
DX: R11.2 Nausea with vomiting, unspecified (principal); R19.7 Diarrhea, unspecified; M54.5 Low back pain; G89.29 Other chronic pain
CPT/HCPCS: 90004; 90074; 90100; 91585; 92235; 92530; 93004; 93140; 95059